=== PATIENT | female | born 1995 | race Caucasian/White ===

== ENCOUNTER 2017-02-02 14:32 | Emergency (ER) | payer OTHER ==
[~2017-02-02] VITALS: Ht 152.4 cm; Wt 42.9 kg
[2017-02-02 15:00] VITALS: BP 113/75
--- NOTE | 2017-02-02 19:26 | NUR ---
PATIENT LEFT WITHOUT BEING SEEN BY DR. PALACIO. NO FURTHER CARE PROVIDED FOR PATIENT.
== END 2017-02-02 19:26 | disposition left against medical advice (07) ==
LOC: MED 14:32
DX: O26.899 Other specified pregnancy related conditions, unspecified trimester (principal); Z53.21 Procedure and treatment not carried out due to patient leaving prior to being seen by health care provider

== ENCOUNTER 2017-02-13 10:16 | Emergency (ER) | payer OTHER ==
[~2017-02-13] VITALS: Ht 149.9 cm; Wt 43.1 kg
[2017-02-13 10:19] VITALS: BP 102/62
[2017-02-13] MEDS ORDERED: ANTIBIOTIC (10:24)
[2017-02-13] MEDS ORDERED: IRON27TA PO (10:24)
[2017-02-13 10:55] LABS: BASOPHILS # (AUTO) 0.2 K/uL (0.00-0.22); BASOPHILS % (AUTO) 3.7 % (0.0-2.0); EOSINOPHILS # (AUTO) 0.1 K/uL (0-0.4); EOSINOPHILS % (AUTO) 2.4 % (0.0-4.0); HEMATOCRIT 36.2 % (36-48); HEMOGLOBIN 11.9 g/dL (12.0-16.0); LYMPHOCYTES # (AUTO) 1.4 K/uL (2.5-16.5); LYMPHOCYTES % (AUTO) 30.2 % (20.5-51.1); MEAN CORPUSCULAR HEMOGLOBIN 27 pg (27-31); MEAN CORPUSCULAR HGB CONC 33 g/dL (33-37); MEAN CORPUSCULAR VOLUME 81 fL (80-94); MONOCYTES # (AUTO) 0.3 K/uL (0.8-1.0); MONOCYTES % (AUTO) 5.4 % (1.7-9.3); NEUTROPHILS # (AUTO) 2.8 K/uL (1.8-7.7); NEUTROPHILS % (AUTO) 58.3 % (42.2-75.2); PLATELET COUNT (AUTO) 200 K/uL (140-450); RED BLOOD CELL COUNT(AUTO) 4.46 MIL/uL (4.20-5.40); RED CELL DISTRIBUTION WIDTH 13.7 % (11.6-13.7); WHITE BLOOD COUNT (AUTO) 4.8 K/uL (4.8-10.8)
[2017-02-13 11:04] LABS: APPEARANCE,URINE CLOUDY (CLEAR); BILIRUBIN,URINE 1+ (NEGATIVE); BLOOD, URINE 3+ (NEGATIVE); COLOR,URINE RED (YELLOW); LEUKOCYTE ESTERASE ,URINE 1+ (NEGATIVE); NITRITE, URINE NEGATIVE (NEGATIVE); PH,URINE 7.5 (5.0-9.0); PROTEIN,URINE 2+ (NEGATIVE); UGLUCOSE NEGATIVE (NEGATIVE)
[2017-02-13 11:24] LABS: ICTOTEST NEGATIVE (NEGATIVE)
[2017-02-13 11:25] LABS: RBC,URINE TOO NUMEROUS TO COUN /HPF (0-5)
[2017-02-13] MEDS ORDERED: fentaNYL 0.05 MG/ML VIAL IVP ONE ×2 (14:30→15:30)
[2017-02-13] MEDS ORDERED: NACL 0.9% 1,000 ML IV ONE (14:35)
[2017-02-13] MEDS ORDERED: ONDANSETRON 4 MG/2 ML VIAL IVP ONE (14:35)
[2017-02-13] MEDS ORDERED: HYDROmorphone 1 MG/ML AMP IVP ONE (16:15)
[2017-02-13 17:28] VITALS: BP 114/62
== END 2017-02-13 17:28 | disposition home or self-care (01) ==
LOC: MED 10:16
DX: O02.89 Other abnormal products of conception (principal)
CPT/HCPCS: 36415; 76817; 81001; 81025; 84702; 85025; 86900; 86901; 87086; 87186; 96361; 96374; 96375; 96376; 99285; J1170; J2405; J3010; J7030